=== PATIENT | male | born 1960 | race Caucasian/White ===

== ENCOUNTER → 2016-05-23 | Emergency (ER) | payer MEDICARE ==
[~2016-05-23] VITALS: Ht 208.3 cm; Wt 88.9 kg
[2016-05-23 11:44] VITALS: BP 139/74
== END ==
LOC: ED 11:37
DX: L03.818 Cellulitis of other sites (principal)
CPT/HCPCS: 99283

== ENCOUNTER 2016-05-26 12:40 | Emergency (ER) | payer MEDICARE ==
[~2016-05-26] VITALS: Ht 182.9 cm; Wt 89.2 kg
[2016-05-26 14:38] VITALS: BP 128/77
== END 2016-05-26 14:40 | disposition home or self-care (01) ==
LOC: ED 12:41
DX: H61.22 Impacted cerumen, left ear (principal)
CPT/HCPCS: 99281; 99283

== ENCOUNTER → 2016-07-08 | Outpatient (CLI) | payer OTHER, MEDICARE ==
[~2016-07-08] MED LIST: CEPH-331 PO; CEPH500T PO; CPR500T PO; CYCL-265; DICL75TA2 PO; FLUC50TA; FURO-125; HCTZ12.5T PO; HYDR-2013 PO; HYDR-3702 PO; HYDR-3754 PO; OMEP20TA PO; PRED20TA PO; SULF1TAB35 PO; TRAZ-28 PO
--- NOTE | 2016-07-08 09:41 | Diagnostic Imaging Report ---
LUMBAR SPINE - 2-3 VIEWS Comparison: None available. Technique: AP, lateral and coned-down lateral views of lumbar spine. Indication: Chronic back pain. Findings: Degenerative straightening of the lumbar spine. No spondylolisthesis. Vertebral bodies are normal in height without compression deformity. Mild degenerative disc space narrowing at L5-S1 and L3-L4. A few scattered small anterior marginal osteophytes are present in the lumbar spine. SI joints are normal. No appreciable hypertrophic degenerative facet disease. Impression: 1. Mild degenerative disc disease in the lumbar spine. Dictated by: Dictated on workstation # [id number]
== END ==
LOC: RAD 08:33
PROVIDERS: ATTEND Neuromusculoskeletal Medicine, Sports Medicine
DX: Z02.71 Encounter for disability determination (principal)
CPT/HCPCS: 72100